=== PATIENT | female | born 1985 | race Caucasian/White ===

== ENCOUNTER 2019-02-05 11:55 | Emergency (ER) | payer MEDICAID, OTHER ==
[~2019-02-05] VITALS: Ht 167.6 cm; Wt 71.0 kg
[~2019-02-05 11:55] MED LIST: PREN-88 PO
[2019-02-05] MEDS ORDERED: ARIP15TA2 PO (12:00)
[2019-02-05 14:21] VITALS: BP 132/78
== END 2019-02-05 14:22 | disposition home or self-care (01) ==
LOC: ER 11:55
DX: T45.0X5A Adverse effect of antiallergic and antiemetic drugs, initial encounter (principal); G24.9 Dystonia, unspecified; E11.649 Type 2 diabetes mellitus with hypoglycemia without coma; F15.10 Other stimulant abuse, uncomplicated; F20.9 Schizophrenia, unspecified; R03.0 Elevated blood-pressure reading, without diagnosis of hypertension; Z79.899 Other long term (current) drug therapy; Y92.89 Other specified places as the place of occurrence of the external cause
CPT/HCPCS: 82962; 99283